=== PATIENT | female | born 1995 | race Caucasian/White ===

== ENCOUNTER 2018-08-19 21:41 | Emergency (ER) | payer SELFPAY ==
[2018-08-19] MEDS ORDERED: KETOROLAC TROMETHAMINE INJ/PF 30 MG/1 ML SDV IV ONE (22:40)
[2018-08-19] MEDS ORDERED: ONDANSETRON HCL INJ/PF 4 MG/2 ML SDV IV ONE (22:40)
[2018-08-19 22:51] LABS: APPEARANCE,URINE SLIGHTLY-CLOUDY; BILIRUBIN,URINE NEGATIVE (NEGATIVE); COLOR,URINE YELLOW; GLUCOSE, URINE NEGATIVE (NEGATIVE); KETONES,URINE NEGATIVE (NEGATIVE); LEUKOCYTE ESTERASE,URINE NEGATIVE (NEGATIVE); NITRITE,URINE NEGATIVE (NEGATIVE); PROTEIN,URINE NEGATIVE (NEGATIVE); URINE SPECIFIC GRAVITY 1.024
[2018-08-19] MEDS ORDERED: NORMAL SALINE 1000 ML 1,000 ML IV ONE (23:26)
--- NOTE | 2018-08-19 23:29 | ER Document Report ---
ED General - General Chief Complaint: Abdominal Pain Stated Complaint: ABDOMINAL PAIN Time Seen by Provider: 08/19/18 22:39 Notes: Patient is a 22-year-old female without chronic medical problems who presents with 5 days of pain to the right lower ribs, right flank and right abdomen. Symptoms have been unchanged since onset. Describes it as a stabbing, aching, constant pain worsened by breathing. Notes associated shortness of breath. No thing improves her symptoms. Denies a history of similar symptoms prior to the past 5 days. No history of DVT or pulmonary embolus. No use of estrogen. No trauma to the area. No association with eating. She states "everybody in my family gets blood clots". Has not seen her primary care doctor regarding today's concerns. Patient has been Googling her symptoms and is concerned that she has multiple different concerning diagnoses. TRAVEL OUTSIDE OF THE [place] IN LAST 30 DAYS: No - Related Data Allergies/Adverse Reactions: Penicillins Allergy (Verified 08/19/18 21:46) Past Medical History - General Information source: Patient - Social History Smoking Status: Never Smoker Frequency of alcohol use: None Drug Abuse: None Lives with: Family Family History: Reviewed & Not Pertinent Patient has suicidal ideation: No Patient has homicidal ideation: No Renal/ Medical History: Denies: Hx Peritoneal Dialysis Review of Systems - Review of Systems Notes: Constitutional: Negative for fever. HENT: Negative for sore throat. Eyes: Negative for visual changes. Cardiovascular: Positive for chest pain. Respiratory: Positive for shortness of breath. Gastrointestinal: Negative for abdominal pain, vomiting or diarrhea. Positive for right flank pain Genitourinary: Negative for dysuria. Musculoskeletal: Negative for back pain. Skin: Negative for rash. Neurological: Negative for headaches, weakness or numbness. 10 point ROS negative except as marked above and in HPI. Physical Exam - Vital signs Vitals: Temp Pulse Resp BP Pulse Ox 99.1 F 106 H 18 111/69 97 08/19/18 22:14 08/19/18 22:14 08/19/18 22:14 08/19/18 22:14 08/19/18 22:14 Interpretation: Tachycardic Notes: PHYSICAL EXAMINATION: GENERAL: Well-appearing, well-nourished and in no acute distress. HEAD: Atraumatic, normocephalic. EYES: Pupils equal round and reactive to light, extraocular movements intact, sclera anicteric, conjunctiva are normal. ENT: nares patent, oropharynx clear without exudates. Moist mucous membranes. NECK: Normal range of motion, supple without lymphadenopathy LUNGS: Breath sounds clear to auscultation bilaterally and equal. No wheezes rales or rhonchi. HEART: Regular tachycardia without murmurs Chest wall: Diffuse pain on palpation of the right lower rib spaces and right flank ABDOMEN: Soft, nontender, normoactive bowel sounds. No guarding, no rebound. No masses appreciated. EXTREMITIES: Normal range of motion, no pitting or edema. No cyanosis. NEUROLOGICAL: No focal neurological deficits. Moves all extremities spont aneously and on command. PSYCH: Normal mood, normal affect. SKIN: Warm, Dry, normal turgor, no rashes or lesions noted. Course - Re-evaluation Re-evalutation: 08/19/18 23:28 Patient presents with 5 days of right lower rib and right upper abdominal pain that has been progressive worsening since onset. On exam she has focal tende rness right upper quadrant as well as the right flank and palpation of the right lower ribs. Worsened by movement and breathing consistent with likely musculoskeletal origin. No risk factors for a pulmonary embolus although is noted to be tachycardic at time of presentation. Will proceed with d-dimer for further assessment. Alternative consideration would be biliary pathology although patient denies any association with eating. Right upper quadrant ultrasound likewise pending. Chest x-ray will also be obtained to evaluate for any evidence of rib injury, less likely pneumothorax. 08/20/18 00:37 D-dimer is positive. Labs otherwise unremarkable. Will proceed with CTA to definitively exclude acute pulmonary embolus. 08/20/18 02:18 CTA unremarkable. Suspect likely musculoskeletal in origin. Right upper quadrant likewise normal. Patient has had improvement with Toradol and Lidoderm patch. At this time will discharge with return precautions and follow-up recommendations. Verbal discharge instructions given a the bedside and opportunity for questions given. Medication warnings reviewed. Patient is in agreement with this plan and has verbalized understanding of return precautions and the need for primary care follow-up in the next 24-72 hours. - Vital Signs Vital signs: Temp Pulse Resp BP Pulse Ox 99.1 F 106 H 18 111/69 97 08/19/18 22:14 08/19/18 22:14 08/19/18 22:14 08/19/18 22:14 08/19/18 22:14 - Laboratory Result Diagrams: 08/19/18 23:47 08/19/18 23:47 Laboratory results interpreted by me: 08/19/18 08/19/18 08/19/18 22:30 23:47 23:47 Hgb 9.4 L Hct 29.2 L MCV 70 L MCH 22.3 L RDW 17.4 H D-Dimer 0.76 H Urine Urobilinogen 4.0 H - Diagnostic Test Radiology reviewed: Image reviewed, Reports reviewed Radiology results interpreted by me: 08/20/18 00:38 Chest x-ray: No acute infiltrate or pneumothorax Discharge - Discharge Clinical Impression: Pleuritic pain, Rib pain on right side, Shortness of breath Condition: Good Disposition: HOME, SELF-CARE Additional Instructions: Your chest wall pain is due to pain of your lower ribs. This pain can last for up to 6 weeks. It is very important that you continue to take purposeful deep breaths. The CT scan of your chest is normal and does not show any evidence of blood clots in your lungs or any evidence of infection. Your ultrasound of the gallbladder is also normal. All of your labs are likewise normal. For your pain: Continue to take ibuprofen 600 mg every 6 hours or Tylenol 1000 mg every 6 hours. Apply local lidocaine to the area per bottle instructions. There is a product sold [id number] called "Aspercreme with lidocaine" that you can use for this purpose. Please follow-up with her primary care doctor in the next 2-3 days. Return to the emergency department immediately if you develop worsening shortness of breath, increased pain, begin coughing blood, pass out, or have any other symptoms that are worrisome to you.
[2018-08-20 00:02] LABS: ABSOLUTE EOSINOPHILS # (AUTO) 0.1 10^3/uL (0.0-0.6); ABSOLUTE LYMPHOCYTES (AUTO) 2.4 10^3/uL (0.5-4.7); ABSOLUTE MONOCYTES (AUTO) 0.7 10^3/uL (0.1-1.4); ABSOLUTE NEUT (AUTO) 6.4 10^3/uL (1.7-8.2); BASOPHILS % (AUTO) 0.4 % (0-2); EOSINOPHILS % (AUTO) 0.6 % (0-6); HEMATOCRIT 29.2 % (36.0-47.0); HEMOGLOBIN 9.4 g/dL (12.0-15.5); LYMPHOCYTES % (AUTO) 24.6 % (13-45); MEAN CORPUSCULAR HEMOGLOBIN 22.3 pg (27.0-33.4); MEAN CORPUSCULAR VOLUME 70 fl (80-97); MONOCYTES % (AUTO) 7.8 % (3-13); PLATELET COUNT 315 10^3/uL (150-450); RED CELL DISTRIBUTION WIDTH 17.4 % (11.5-14.0); SEGMENTED NEUTROPHILS % (AUTO) 66.6 % (42-78); TOTAL CELLS COUNTED % (AUTO) 100 %; WHITE BLOOD COUNT 9.7 10^3/uL (4.0-10.5)
--- NOTE | 2018-08-20 00:18 | RADIOLOGY REPORT (SQ) ---
CLINICAL HISTORY: sob COMPARISON: None. 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 Lungs are clear without consolidation, atelectasis, mass or edema. There is no pleural effusion. There is no pneumothorax. There are no acute osseous findings. IMPRESSION: Clear lungs.
[2018-08-20 00:27] LABS: ALANINE AMINOTRANSFERASE 21 U/L (9-52); ALBUMIN 4.4 g/dL (3.5-5.0); ALKALINE PHOSPHATASE 75 U/L (38-126); ANION GAP 12 (5-19); ASPARTATE AMINO TRANSFERASE 26 U/L (14-36); BILIRUBIN,DIRECT 0.3 mg/dL (0.0-0.4); BILIRUBIN,TOTAL 0.5 mg/dL (0.2-1.3); BLOOD UREA NITROGEN 10 mg/dL (7-20); CALCIUM 9.2 mg/dL (8.4-10.2); CARBON DIOXIDE 23 mmol/L (22-30); CHLORIDE 106 mmol/L (98-107); GLUCOSE 93 mg/dL (75-110); LIPASE 127.6 U/L (23-300); POTASSIUM 4.1 mmol/L (3.6-5.0); SODIUM 140.7 mmol/L (137-145); TOTAL PROTEIN 7.1 g/dL (6.3-8.2)
--- NOTE | 2018-08-20 00:55 | RADIOLOGY REPORT (SQ) ---
CLINICAL HISTORY: ruq pain COMPARISON: None. 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 Liver is normal in echotexture. Gallbladder is contracted without wall thickening or pericholecystic fluid. There may be a small gallbladder polyp. Common bile duct measures 2 mm. Right kidney measures 10.8 cm without hydronephrosis. IMPRESSION: Probable tiny gallbladder polyp. No evidence of cholecystitis.
--- NOTE | 2018-08-20 02:00 | RADIOLOGY REPORT (SQ) ---
EXAM DESCRIPTION: CT CHEST ANGIOGRAPHY WITHOUT THEN WITH IV CONTRAST COMPLETED DATE/TME: 08/20/2018 00:37 CLINICAL HISTORY: 22 years, Female, sob / tachy / elevated d-dimer / eval pe COMPARISON: None. TECHNIQUE: Axial CT images of the chest were obtained after the administration of IV contrast. MPR and MIP reconstructions were performed. DLP 565 Images stored on PACS. All CT scanners at this facility use dose modulation, iterative reconstruction, and/or weight based dosing when appropriate to reduce radiation dose to as low as reasonably achievable (ALARA). [facility]: Dose Right [facility]: CareDose [facility]: Dose Right [facility]: Teradose 4D [facility]: [place] LIMITATIONS: None. FINDINGS: The exam is somewhat limited secondary to patient motion. No pulmonary embolism is detected. The thyroid gland is normal. The tracheobronchial tree is unremarkable. The heart is normal in size. There is no pericardial effusion. There is no mediastinal lymphadenopathy. The aorta is normal in caliber. There is no evidence of a dissection or aneurysm. The lungs are clear. There is no pneumothorax or pleural effusion. The visualized portions of the upper abdomen are unremarkable. There are no lytic or blastic bone lesions IMPRESSION: No CT evidence of acute pulmonary embolism TECHNICAL DOCUMENTATION: Quality ID # [id number]: Final reports with documentation of one or more dose reduction techniques (e.g., Automated exposure control, adjustment of the mA and/or kV according to patient size, use of iterative reconstruction technique) copyright 2010 [employer]- All Rights Reserved
[2018-08-20] MEDS ORDERED: LIDOCAINE 5% (700 MG) TRANSDERMAL ADH..PATCH TP ONE (02:24)
[2018-08-20 03:04] VITALS: BP 115/73
== END 2018-08-20 02:46 | disposition home or self-care (01) ==
LOC: ER 21:41
DX: R07.81 Pleurodynia (principal); R06.02 Shortness of breath; R10.9 Unspecified abdominal pain
CPT/HCPCS: 99284; 96374; 36415; 83690; 84703; 85025; 80053; 81001; 85379; 71045; 76705; 71275; J1885; J2405; J7030